=== PATIENT | male | born 1980 | race African-American/Black ===

== ENCOUNTER 2021-10-20 12:55 | Emergency (ER) | payer MEDICAID ==
[~2021-10-20] VITALS: Ht 175.3 cm; Wt 82.3 kg
[2021-10-20 14:08] VITALS: BP 134/91
[2021-10-20] MEDS ORDERED: CYCL-1 PO (14:54)
== END 2021-10-20 15:20 | disposition home or self-care (01) ==
LOC: ER 12:56
DX: M54.9 Dorsalgia, unspecified (principal); M54.2 Cervicalgia; Z79.899 Other long term (current) drug therapy; V89.2XXA Person injured in unspecified motor-vehicle accident, traffic, initial encounter; Y93.89 Activity, other specified; Y92.89 Other specified places as the place of occurrence of the external cause; Y99.8 Other external cause status
CPT/HCPCS: 99283